=== PATIENT | female | born 1995 | race Caucasian/White ===

== ENCOUNTER → 2016-11-29 | Outpatient (CLI) | payer OTHER ==
[2016-11-29 12:17] LABS: HEMATOCRIT 42.5 % (37-47); MEAN CELL VOLUME 89.5 fL (80-100); MEAN CORPUSCULAR HEMOGLOBIN 29.7 pg (25-34); MEAN CORPUSCULAR HGB CONC 33.2 g/dl (32-36); MEAN PLATELET VOLUME 11.4 fL (7.4-10.4); PLATELET COUNT 284 K/uL (130-400); RED BLOOD COUNT 4.75 M/uL (4.2-5.4); WHITE BLOOD COUNT 4.62 K/uL (4.8-10.8)
[2016-11-29 12:38] LABS: PREG INTERNAL NEGATIVE QC NEG CLEAR BACKGROUND; PREG INTERNAL POSITIVE QC POS CONTROL LINE
== END | disposition home or self-care (01) ==
LOC: C.LAB1850 10:41
PROVIDERS: ATTEND Physician Assistant
DX: N92.6 Irregular menstruation, unspecified (principal)

== ENCOUNTER → 2016-11-29 | Outpatient (CLI) | payer OTHER | END | disposition home or self-care (01) | LOC: C.PAPS 14:11 | PROVIDERS: ATTEND Physician Assistant | DX: N93.0 Postcoital and contact bleeding (principal) ==

== ENCOUNTER → 2016-11-29 | Outpatient (CLI) | payer OTHER ==
[2016-12-03 02:32] LABS: CHLAMYDIA TRACH RNA*** NOT DETECTED (NOT DETECTED); GC (NEIS GONORRHOEAE)RNA** NOT DETECTED (NOT DETECTED)
== END | disposition home or self-care (01) ==
LOC: C.LABSPEC 13:50
PROVIDERS: ATTEND Physician Assistant
DX: N92.6 Irregular menstruation, unspecified (principal)

== ENCOUNTER → 2017-02-13 | Outpatient (CLI) | payer OTHER ==
[2017-02-13 12:43] LABS: PREG INTERNAL NEGATIVE QC NEG CLEAR BACKGROUND; PREG INTERNAL POSITIVE QC POS CONTROL LINE
[2017-02-14 04:05] LABS: RAPID PLASMA REAGIN NONREACTIVE (NONREACT)
[2017-02-18 00:44] LABS: CHLAMYDIA TRACH RNA*** NOT DETECTED (NOT DETECTED); GC (NEIS GONORRHOEAE)RNA** NOT DETECTED (NOT DETECTED)
== END | disposition home or self-care (01) ==
LOC: C.LAB1850 10:41
PROVIDERS: ATTEND Physician Assistant
DX: Z32.01 Encounter for pregnancy test, result positive (principal); N89.8 Other specified noninflammatory disorders of vagina; Z11.3 Encounter for screening for infections with a predominantly sexual mode of transmission; N91.1 Secondary amenorrhea

== ENCOUNTER → 2017-02-17 | Outpatient (CLI) | payer OTHER | END | disposition home or self-care (01) | LOC: C.LAB 16:17 | PROVIDERS: ATTEND Physician Assistant | DX: Z32.01 Encounter for pregnancy test, result positive (principal) ==

== ENCOUNTER → 2017-03-04 | Outpatient (CLI) | payer OTHER | END | disposition home or self-care (01) | LOC: C.LAB1850 08:07 | PROVIDERS: ATTEND Physician Assistant | DX: Z30.9 Encounter for contraceptive management, unspecified (principal) ==

== ENCOUNTER 2017-08-15 09:25 | Emergency (ER) | payer OTHER ==
[~2017-08-15] VITALS: Ht 162.6 cm; Wt 55.3 kg
[2017-08-15 09:27] VITALS: TEMP 36.7; Ht 162.6 cm; Wt 55.3 kg
[2017-08-15] MEDS ORDERED: VNTHFA/IN INH (09:36)
[2017-08-15] MEDS ORDERED: LEVO1IUD (09:36)
--- NOTE | 2017-08-15 10:38 | DIAGNOSTIC IMAGING REPORT ---
CHEST 2 VIEWS ROUTINE CLINICAL HISTORY: Cough. Cold. COMPARISON STUDY: No previous studies for comparison. FINDINGS: Lung volumes are normal. No pneumothorax or pleural effusion is noted. There is no consolidation or evidence for pulmonary edema. Cardiac size is normal. Mediastinal contours are normal. IMPRESSION: No acute cardiopulmonary findings. Electronically signed by: Zhang Bustillo M.D. 08/15/2017 10:37 AM Dictated Date/Time: 08/15/2017 10:36 AM
[2017-08-15 11:17] VITALS: BP 121/73; PULSE 99; O2SAT 100
--- NOTE | 2017-08-15 17:48 | EMERGENCY ROOM VISIT NOTE ---
History Report prepared by Jean Paul: Keith Ellison Under the Supervision of: Dr. Santiago Perez M.D. First contact with patient: 09:32 Chief Complaint: ILLNESS Stated Complaint: EYE ISSUES, CHEST PAIN WHILE BREATHING, COUGH, CON History of Present Illness The patient is a 22 year old female who presents to the Emergency Room with complaints of intermittent chest pain beginning a week ago. Her pain is worsened with deep breathing. The patient also complains of a productive cough, chills, and body aches. Her cough produces a green sputum. She denies fevers or vomiting. The patient denies recent travel. She denies oral control.. She denies chance of . The patient notes that she has not had an appetite recently. Source of History: patient Onset: A week ago Position: chest Timing: intermittent Modifying Factors (Worsening): breathing Associated Symptoms: + chills, + cough (produces green sputum), No fevers, No vomiting Note: Additional symptoms: body aches. Review of Systems See HPI for pertinent positives and negatives. A total of ten systems were reviewed and were otherwise negative. Past Medical & Surgical Medical Problems: (1) No Known Active Medical Problems Family History No pertinent family history stated. Social History Smoking Status: Never Smoker Current/Historical Medications Scheduled PRN Albuterol Hfa (Ventolin Hfa), 2-4 PUFFS INH Q6H PRN for Shortness of Breath Miscellaneous Medications Levonorgestrel (Iud) (Rosi) Allergies Coded Allergies: BEE STING (Unverified Allergy, Intermediate, swelling, 08/15/17) Doxycycline (Unverified Allergy, Unknown, hives and trouble breathing, 08/15) Physical Exam Vital Signs Date Time Temp Pulse Resp B/P (MAP) Pulse Ox O2 Delivery O2 Flow Rate FiO2 08/15/17 11:17 99 20 121/73 100 08/15/17 09:27 36.7 110 18 112/67 97 Room Air Physical Exam Physical Exam GENERAL: She is oriented to person, place, and time. She appears well- developed and well-nourished. She does not appear distressed. ____ HENT: Exam performed. Head: Normocephalic and atraumatic. Right Ear: External ear normal. No mastoid tenderness. TM baez and pearly. No erythema or bulging. Left Ear: External ear normal. No mastoid tenderness. TM baez and pearly. No erythema or bulging. Mouth/Throat: The oropharynx is clear and moist. No trismus in the jaw. No dental abscesses or uvula swelling. No oropharyngeal exudate or tonsillar abscesses. ____ EYES: Conjunctivae and EOM are normal. Pupils are equal, round, and reactive to light. Right eye exhibits no discharge. Left eye exhibits no discharge. No scleral icterus. ____ NECK: Normal range of motion. Neck supple. No JVD present. No spinous process tenderness present. No carotid bruit present. No rigidity. No tracheal deviation and normal range of motion present. No Brudzinski's sign and no Kernig 's sign noted. ____ CV: Normal rate, regular rhythm, normal heart sounds and intact distal pulses. There is no peripheral edema. Palpable radial pulses bue. ____ PULM/CHEST: Effort normal and breath sounds normal. No respiratory distress. No stridor. She has no wheezes. She has no rales. Chest Wall: She exhibits no tenderness. ____ ABD: The abdomen is soft. Bowel sounds are normal. She has no distension. No mass is present. There is no tenderness. There is no rebound, no guarding, no Baliey's sign and no tenderness at McBurney's point. Rovsig negative MUSC/SKEL: Normal range of motion. There is no peripheral edema, tenderness or deformity. LYMPH: No cervical adenopathy. ____ NEURO: She is alert and oriented to person, place, and time. She has normal strength. No cranial nerve deficit or sensory deficit. Coordination and gait normal. GCS eye subscore is 4. GCS verbal subscore is 5. GCS motor subscore is 6. Cerebellar tests wnl. ____ SKIN: Skin is warm and dry. She is not diaphoretic. ____ PSYCH: She has a normal mood and affect. Her behavior is normal. Judgment and thought content normal. ____ Medical Decision & Procedures ER Provider Diagnostic Interpretation: Radiology results as stated below per my review and radiologist interpretation: CHEST 2 VIEWS ROUTINE FINDINGS: Lung volumes are normal. No pneumothorax or pleural effusion is noted. There is no consolidation or evidence for pulmonary edema. Cardiac size is normal. Mediastinal contours are normal. IMPRESSION: No acute cardiopulmonary findings. Electronically signed by: Zhang Bustillo M.D. 08/15/2017 10:37 AM ECG Per My Interpretation Indication: chest pain Rate (beats per minute): 98 Rhythm: sinus rhythm Findings: other (No ST elevation or depression. QT, QRS, and WV intervals within normal limits. ) ED Course 0938: The patient was evaluated in room C4. A complete history and physical exam was performed. 1100: Updated the patient. I told her about her normal ECG and chest x-ray. Patient will be discharged. DISCHARGE - Plan of care discussed with patient and questions answered. The patient was given both verbal and printed discharge instructions. The patient verbalized understanding and ability to comply. The patient is to seek outpatient follow up as noted in the discharge instructions. The patient verbalized understanding and ability to comply. The patient is discharged in stable condition. The patient was instructed to return for worsening symptoms. Medical Decision I told her about her normal ECG and chest x-ray. Patient will be discharged. No PE risk factors. DISCHARGE - Plan of care discussed with patient and questions answered. The patient was given both verbal and printed discharge instructions. The patient verbalized understanding and ability to comply. The patient is to seek outpatient follow up as noted in the discharge instructions. The patient verbalized understanding and ability to comply. The patient is discharged in stable condition. The patient was instructed to return for worsening symptoms. Medication Reconcilliation Current Medication List: was personally reviewed by me Blood Pressure Screening Patient's blood pressure: Normal blood pressure Blood pressure disposition: Did not require urgent referral Impression Primary Impression: Acute costochondritis Scribe Attestation The scribe's documentation has been prepared under my direction and personally reviewed by me in its entirety. I confirm that the note above accurately reflects all work, treatment, procedures, and medical decision making performed by me. The chart was completed utilizing R2[employer] Speech voice recognition software. Grammatical errors, random word insertions, pronoun errors, and incomplete sentences are an occasional consequence of this system due to software limitations, ambient noise, and hardware issues. Any formal questions or concerns about the content, text, or information contained within the body of this dictation should be directly addressed to the physician for clarification. Departure Information Dispostion Home / Self-Care Referrals No Doctor, Assigned (PCP) Forms HOME CARE DOCUMENTATION FORM, IMPORTANT VISIT INFORMATION, WORK / SCHOOL INSTRUCTIONS Patient Instructions ED Chest Pain Costochondritis, [facility] Additional Instructions return to ED if you cough up blood, lose consciousness, have blood in urine or stool, fever > 100.4
== END 2017-08-15 11:18 | disposition home or self-care (01) ==
LOC: C.EDB 09:27 → C.EDC 11:18
DX: M94.0 Chondrocostal junction syndrome [Tietze] (principal)

== ENCOUNTER 2022-05-18 19:26 | Inpatient (IN) ==
[2022-05-18] MEDS ORDERED: OXYTOCIN 30 UNITS/500 ML BAG IV PRN ×2 (20:33→22:13)
[2022-05-18] MEDS ORDERED: BETAMETH SOD PHOS/ACETATE IA 6 MG/ML IM STA (20:33)
[2022-05-18] MEDS ORDERED: LIDOCAINE 1% LOCAL 20 ML VIAL INFIL PRN (20:33)
[2022-05-18] MEDS: LACTATED RINGER'S 1,000 ML IV PRN (21:40)
[2022-05-18] MEDS ORDERED: SODIUM CHLORIDE 0.9% INJ 10 ML VIAL ONE (21:43)
[2022-05-18] MEDS ORDERED: ePHEDrine sulfate 50 MG/ML AMP ONE (21:43)
[2022-05-18] MEDS ORDERED: fentaNYL citrate 100 MCG/2 ML VIAL ONE (21:43)
[2022-05-18] MEDS ORDERED: LIDOCAINE 2%/EPINEPHRINE 1:200,000 20 ML SDV ONE (21:43)
[2022-05-18] MEDS ORDERED: BUPIVACAINE 0.25% 30 ML VIAL ONE (21:43)
[2022-05-18] MEDS ORDERED: fentaNYL 2MCG/ML ROPIVACAINE 1.25MG/ML 100 ML BAG EPI ONE (21:44)
[2022-05-18 22:06] LABS: Hematocrit (blood only) 48.3 % (34.1-44.9); Hemoglobin 16.8 g/dl (12.0-16.0); Mean Corpuscular Hemoglobin 30.5 pg (25.0-34.0); Mean Corpuscular Hgb Conc 34.8 g/dL (32.0-36.0); Mean Corpuscular Volume 87.7 fL (80.0-100.0); Platelet Count 147 K/uL (130-400); RDW Coefficient of Variation 11.6 % (11.5-14.5); RDW Standard Deviation 37.4 fL (36.4-46.3); Red Blood Count 5.51 M/uL (3.93-5.22); White Blood Count 7.66 K/ul (4.8-10.8)
--- NOTE | 2022-05-18 22:12 | History & Physical Report ---
Date of Service May 18, 2022 Assessment & Plan (1) PROM with onset of labor within 24 hours of rupture: (2) 36 weeks gestation of : Plan admit, iv, labs. fhts categ 1. will get epidural. add pitocin for augmentation if needed. Admission and Anticipated Discharge Date Admission Date: May 18, 2022 History of Present Illness Chief Complaint: leaking fluid Primary Care Provider: Starla Tobin MD 26yo at 36 5/7 wks enriqueta presents to L&D noting large leaking clear fluid starting at 1830 today. On arrival to L&D gross srom and having ctx q2-5 and cx 3 cm. She is not bleeding. Now more painful and requesting epidural. PNC c/b 1. hypothyroid PNL Rh pos, RI, GBS neg OBH: sab x 1, tab x 1 GYNH: nl paps, no stds Allergies Allergy/AdvReac Type Severity Reaction Status Date / Time bee venom protein (honey bee) Allergy Intermediate swelling Verified 05/18/22 19:53 doxycycline Allergy Unknown hives and Verified 05/18/22 19:53 trouble breathing azithromycin Allergy heart Verified 05/18/22 19:53 palpitations Home Medications Medication Instructions Recorded Confirmed Type prenat.vits,coral,[id number]-[id number]-[id number] 1 tab PO DAILY 10/15/21 05/18/22 History albuterol sulfate 90 mcg/actuation 2 puff inhalation QID PRN 11/27/21 05/18/22 Rx aerosol inhaler shortness of breath or wheezing #8.5 grams levothyroxine 112 mcg tablet 112 mcg PO DAILY #30 tabs 02/25/22 05/18/22 Rx Patient History Medical History (Updated 05/18/22 @ 22:09 by Tiara Almazan MD, FACOG) Asthma Chlamydia Hypothyroid Low grade squamous intraepithelial lesion (LGSIL) Second trimester Vaginal discharge, non-hemorrhagic Varicella vaccination Surgical History H/O gynecological procedure D&E 15wk anomalous fetus/Trisomy 18 [facility] Post-operative state S/P wisdom tooth extraction Family History Grandmother (Maternal) Colorectal cancer Grandfather (Maternal) Heart disease Mother Diabetes Brother Diabetes Grandmother (Paternal) Diabetes Denies family history of Ovarian cancer Prostate cancer Breast cancer Social History Smoking Status: Never smoker Second Hand Exposure: No; Hx Alcohol Use: Yes Alcohol type: wine Hx Substance Use: No Preferred Language: Croatian Communication Ability: Effective Visual Impairment: No Limitations Hearing Ability: Normal Seo Marketing Specialist Required: No Beliefs That Will Affect Care: None marital status: Single marital status details: pato Alvarez (34) [phone] Current Living Situation: Significant Other Current Living Situation Comment: Boyfriend current occupational status: employed 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 Other Information That Helps Us Care for You: No Feels Safe at Home: Yes Safety Concerns: Feels Safe At This Time Childhood Exposure to Second-Hand Smoke: No Dental Care, Regularly: Yes Physical Activity Frequency: Daily Seatbelt Use: always Sunscreen Use: Yes Assistive Devices: Contacts Review of Systems as per Subjective / HPI Physical Exam Constitutional: WD/WN, vitals as above Respiratory: normal respiratory effort, lungs clear to auscultation Cardiovascular: Rate/Rhythm: regular rate and regular rhythm Gastrointestinal (Abdomen): soft gravid nt Musculoskeletal: no edema nontender calves Neurologic: grossly normal Psychiatric: A+Ox3, euthymic affect Genitourinary: Manual OB Exam: + cervical dilation 3 cm, + cervical effacement 100% and + station -2 OB Exam Monitor Tracing: + external FHT monitor used, + external uterine monitor used (q2-3), + category I and + normal FHT variability Results & Data ([facility]) Vital Signs (Past 12 Hours) Vital Signs Temp Pulse Resp BP Pulse Ox 05/18/22 19:55 98.2 F 18 05/18/22 21:59 94 05/18/22 21:59 80 05/18/22 21:59 77 94 05/18/22 21:54 83 97 05/18/22 21:52 72 93 05/18/22 21:49 79 96 05/18/22 21:45 77 94 05/18/22 21:44 75 96 05/18/22 21:40 78 18 118/70 05/18/22 21:39 76 96 05/18/22 21:05 18 05/18/22 21:05 98.4 F 18 05/18/22 19:46 78 124/69 Coding Level of Care Code None Diagnoses PROM with onset of labor within 24 hours of rupture O42.00 36 weeks gestation of Z3A.36
[2022-05-18] MEDS ORDERED: NALOXONE HCL 0.4 MG/1 ML VIAL/CARP IV PRN (22:29)
[2022-05-18] MEDS ORDERED: diphenhydrAMINE 50 MG/ML VIAL IV PRN (22:29)
[2022-05-18] MEDS ORDERED: NALBUPHINE HCL INJ 10 MG/ML AMP IV PRN (22:29)
[2022-05-18] MEDS ORDERED: ePHEDrine sulfate 50 MG/ML AMP IV PRN (22:29)
[2022-05-18] MEDS ORDERED: NALOXONE HCL 1 MG in SODIUM CHLORIDE 0.9% 1000ML 1,000 ML IV PRN (22:29)
[2022-05-18] MEDS ORDERED: fentaNYL 2MCG/ML ROPIVACAINE 1.25MG/ML 100 ML BAG EPI PRN (22:29)
--- NOTE | 2022-05-18 22:29 | Anesthesiology Consultation ---
Date of Service May 18, 2022 Assessment & Plan (1) Encounter for pre-operative examination: Chart Review Chart Review: Patient NOT seen in Pre Admission Testing and Acceptable Risk for Labor Epidural History Height/Weight Height: 5 ft 4 in Weight: 68.946 kg Allergies Allergy/AdvReac Type Severity Reaction Status Date / Time bee venom protein (honey bee) Allergy Intermediate swelling Verified 05/18/22 19:53 doxycycline Allergy Unknown hives and Verified 05/18/22 19:53 trouble breathing azithromycin Allergy heart Verified 05/18/22 19:53 palpitations Medications Home Medications Medication Instructions Recorded Confirmed Last Taken prenat.vits,coral,snq-xlos-nrffz 1 tab PO DAILY 10/15/21 05/18/22 05/18/22 albuterol sulfate 90 mcg/actuation 2 puff inhalation QID PRN 11/27/21 05/18/22 Unknown aerosol inhaler shortness of breath or wheezing #8.5 grams levothyroxine 112 mcg tablet 112 mcg PO DAILY #30 tabs 02/25/22 05/18/22 05/18/22 Active Medications Generic Name Dose Route Start Last Admin Trade Name Freq PRN Reason Stop Dose Admin Lactated Ringer's 1,000 mls @ 125 mls/hr 05/18/22 20:33 05/18/22 21:40 Lr IV 05/20/22 20:32 999 mls/hr .Q8H PRN Administration L&D Protocol Protocol Past Medical History Medical History Asthma Chlamydia Hypothyroid Low grade squamous intraepithelial lesion (LGSIL) Second trimester Vaginal discharge, non-hemorrhagic Varicella vaccination Past Family History Family History Grandmother (Maternal) Colorectal cancer great grandmother Grandfather (Maternal) Heart disease Mother Diabetes Brother Diabetes Grandmother (Paternal) Diabetes Denies family history of Ovarian cancer Prostate cancer Breast cancer Past Surgical History Surgical History H/O gynecological procedure D&E 15wk anomalous fetus/Trisomy 18 [facility] Post-operative state S/P wisdom tooth extraction Social History Smoking Status: Never smoker Hx Alcohol Use: Yes Alcohol type: wine alcohol intake frequency: a few times a week Hx Substance Use: No substance use type: does not use Physical Exam Vital Signs Last Vital Signs Temp 98.4 F 05/18/22 21:05 Pulse 80 05/18/22 22:24 Resp 18 05/18/22 21:40 BP 118/70 05/18/22 21:40 Pulse Ox 95 05/18/22 22:24 Testing Laboratory Results 05/18/22 20:56
[2022-05-19] MEDS: LACTATED RINGER'S 1,000 ML IV PRN (00:01)
[2022-05-19] MEDS ORDERED: NURSING L&D Epidural Breakthrough Pain Update ONE (00:42)
[2022-05-19] MEDS ORDERED: SODIUM CHLORIDE 0.9% INJ 10 ML VIAL ONE (01:41)
[2022-05-19] MEDS ORDERED: fentaNYL citrate 100 MCG/2 ML VIAL ONE (01:41)
[2022-05-19] MEDS ORDERED: BUPIVACAINE 0.25% 30 ML VIAL ONE (01:42)
--- NOTE | 2022-05-19 03:11 | Delivery Summary ---
Vaginal Delivery Summary Date of Service May 19, 2022 Vaginal Delivery Summary The patient dilated to complete and pushed to deliver a viable female Apgars 8 and 9 via over intact perineum. Mouth and nose bulb suctioned at perineum. Shoulders and body delivered with ease. was vigorous and crying at . Cord clamped at 30 seconds of life and infant to maternal abdomen where the cord was then doubly clamped and cut. Placenta delivered spontaneously and intact, three-vessel cord. Hemostasis achieved with dilute pitocin and uterine massage and drainage of the bladder for approximately 300 cc under sterile conditions. Cervix and sulci intact. Small bilateral labial lacerations reapproximated with 4-0 vciryl in routine fashion. EBL 300 cc. Mother and baby stable in recovery. [facility] Vaginal Delivery Charge Delivery Type Details:
[2022-05-19] MEDS ORDERED: HYDROCORTISONE ACETATE 25 MG SUPP PR PRN (03:29)
[2022-05-19] MEDS ORDERED: DIPHTHERIA/TETANUS/PERTUSSIS 0.5 ML SYR/VIAL IM ONE (03:29)
[2022-05-19] MEDS ORDERED: OXYTOCIN 20 UNITS in LACTATED RINGER'S 1,000 ML IV SCH (03:29)
[2022-05-19] MEDS ORDERED: oxyCODONE/ACETAMINOPHEN 5mg/325mg TAB PO PRN (03:29)
[2022-05-19] MEDS ORDERED: ACETAMINOPHEN 325 MG TAB PO PRN (03:29)
[2022-05-19] MEDS ORDERED: OXYTOCIN 30 UNITS/500 ML BAG IV PRN (03:29)
[2022-05-19] MEDS ORDERED: BENZOCAINE 20% AER SPR 82.5 GM CAN EXT PRN (03:29)
[2022-05-19] MEDS: LEVOTHYROXINE SODIUM 112 MCG TABLET PO SCH (06:39)
--- NOTE | 2022-05-19 07:28 | Anesthesia Procedure Note ---
Date of Service May 19, 2022 Anesthesia Post Epidural Note Vital Signs Vital Signs: Temp Pulse Resp BP Pulse Ox 37.2 C 83 16 105/58 L 93 05/19/22 06:38 05/19/22 06:38 05/19/22 06:38 05/19/22 06:38 05/19/22 03:04 Pain Intensity Bilateral Lower Abdomen: Pain Intensity: 0 Notes Mental Status: alert / awake / arousable Nausea / Vomiting: adequately controlled Pain: adequately controlled Airway Patency, RR, SpO2: stable & adequate BP & HR: stable & adequate Hydration State: stable & adequate Neuraxial Anesthesia: sensory block resolved Anesthetic Complications: no major complications apparent and Pt Satisfied with anesthetic care Epidural: Removed without complications and With tip intact
[2022-05-19] MEDS: DOCUSATE SODIUM 100 MG CAP PO SCH ×2 (08:58→20:09)
[2022-05-19] MEDS: PRENATAL VITAMIN 1 TAB PO SCH (08:58)
[2022-05-19] MEDS: IBUPROFEN 600 MG TAB PO PRN (20:09)
[2022-05-20] MEDS: IBUPROFEN 600 MG TAB PO PRN ×3 (02:53→21:56)
--- NOTE | 2022-05-20 06:04 | Obstetrical Progress Note ---
Date of Service <Sarahy Georges MD - Last Filed: 05/20/22 06:53> May 20, 2022 Assessment & Plan <Sarahy Georges MD - Last Filed: 05/20/22 06:53> (1) care following vaginal delivery: 26 y/o , GBS neg, Rh pos, RI now PPD 1 after at 36 6/7 weeks on 05/19/22 doing well. Satisfactory post- progress. Encourage ambulation. Patient . Overall doing well. <Tiara Almazan MD, FACOG - Last Filed: 05/20/22 07:09> (1) care following vaginal delivery: Day #:: 1 Subjective <Sarahy Georges MD - Last Filed: 05/20/22 06:53> Ambulation: ambulating normally Voiding: no voiding problems Passing Gas:: Yes Diet Tolerance:: regular diet Lochia:: Small Feeding Type:: breast feeding Physical Exam <Sarahy Georges MD - Last Filed: 05/20/22 06:53> Constitutional WD/WN, vitals as above Respiratory normal respiratory effort, lungs clear to auscultation Cardiovascular RRR, no murmur, no edema Extremities: no calf tenderness Genitourinary OB Exam Abdomen: + fundal height Fundus: + firm and + relation to umbilicus (@ the level of the umbilicus) Results & Data ([facility]) <Sarahy Georges MD - Last Filed: 05/20/22 06:53> Vital Signs (Past 12 Hours) Vital Signs Temp Pulse Resp BP Pulse Ox O2 Del Method 05/20/22 03:00 36.9 C 63 20 109/69 97 Room Air 05/19/22 23:25 36.8 C 68 20 100/62 97 Room Air 05/19/22 20:00 36.7 C 72 18 111/71 95 Room Air <Tiara Almazan MD, FACOG - Last Filed: 05/20/22 07:09> Co-Signing Physician Notes Resident Physician Supervision Note: I interviewed and examined the patient. Discussed with Dr. Georges and agree with findings and plan as documented in the note. Any exceptions or clarifications are listed here: stable routine care. eating, voiding, ambulating, breast feeding and pumping, baby just started to wake up to latch. 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 instructions reviewed, would need 6wk pp check. Documented By: Tiara Almazan MD, FACOG Resident Activity Tracking <Sarahy Georges MD - Last Filed: 05/20/22 06:53> Resident Involvement: Resident Care Provided Care Provided: Adult Hospital Medicine and OB Delivery
[2022-05-20] MEDS: LEVOTHYROXINE SODIUM 112 MCG TABLET PO SCH (06:19)
[2022-05-20] MEDS: PRENATAL VITAMIN 1 TAB PO SCH (09:34)
[2022-05-20] MEDS: DOCUSATE SODIUM 100 MG CAP PO SCH ×2 (09:34→21:56)
[2022-05-21] MEDS ORDERED: bisacodyL 10 MG SUPP PR PRN (03:29)
[2022-05-21] MEDS: LEVOTHYROXINE SODIUM 112 MCG TABLET PO SCH (05:41)
--- NOTE | 2022-05-21 06:21 | Obstetrical Progress Note ---
Date of Service <Sarahy Georges MD - Last Filed: 05/21/22 06:21> May 21, 2022 Assessment & Plan <Sarahy Georges MD - Last Filed: 05/21/22 06:21> (1) care following vaginal delivery: 26 y/o , GBS neg, Rh pos, RI now PPD 2 after at 36 6/7 weeks on 05/19/22 doing well. Satisfactory post- progress. Encourage ambulation. Patient . Overall doing well. <Fernanda Baer MD - Last Filed: 05/21/22 07:06> (1) care following vaginal delivery: Subjective <Sarahy Georges MD - Last Filed: 05/21/22 06:21> Ambulation: ambulating normally Voiding: no voiding problems Passing Gas:: Yes Diet Tolerance:: regular diet Lochia:: Small Feeding Type:: breast feeding Physical Exam <Sarahy Georges MD - Last Filed: 05/21/22 06:21> Constitutional WD/WN, vitals as above Respiratory normal respiratory effort, lungs clear to auscultation Cardiovascular RRR, no murmur, no edema Psychiatric A+Ox3, euthymic affect Genitourinary OB Exam Abdomen: + fundal height Fundus: + firm and + relation to umbilicus (@ the level of the umbilicus) Results & Data ([facility]) <Sarahy Georges MD - Last Filed: 05/21/22 06:21> Vital Signs (Past 12 Hours) Vital Signs Temp Pulse Resp BP Pulse Ox O2 Del Method 05/21/22 00:40 36.6 C 75 16 115/73 98 Room Air 05/20/22 22:00 36.6 C 73 16 118/71 97 Room Air <Fernanda Baer MD - Last Filed: 05/21/22 07:06> Co-Signing Physician Notes Resident Physician Supervision Note: I interviewed and examined the patient. Discussed with Dr. Georges and agree with findings and plan as documented in the note. Any exceptions or clarifications are listed here: 26 yo PP2 s/p , doing well. VSS, exam benign and wnl. Stable for d/c home today Documented By: Fernanda Baer MD Resident Activity Tracking <Sarahy Georges MD - Last Filed: 05/21/22 06:21> Resident Involvement: Resident Care Provided Care Provided: Adult Hospital Medicine and OB Delivery
[2022-05-21] MEDS: DOCUSATE SODIUM 100 MG CAP PO SCH (09:42)
[2022-05-21] MEDS: PRENATAL VITAMIN 1 TAB PO SCH (09:42)
== END 2022-05-21 14:20 | disposition home or self-care (01) | DRG 807 ==
LOC: OPB 19:26 → 4S1 19:27 → 4E2 05-19 08:16